=== PATIENT | male | born 1990 | race Asian ===

== ENCOUNTER 2018-07-14 19:13 | Emergency (ER) | payer SELFPAY ==
[~2018-07-14] VITALS: Ht 167.6 cm; Wt 59.1 kg
[2018-07-14] MEDS ORDERED: IBUPROFEN 600 MG TABLET PO ONE (20:15)
[2018-07-14] MEDS ORDERED: CYCLOBENZAPRINE HCL 10 MG TABLET PO ONE (20:15)
[2018-07-14 20:34] VITALS: BP 133/86
== END 2018-07-14 20:40 | disposition home or self-care (01) ==
LOC: EMS 19:14
DX: S13.4XXA Sprain of ligaments of cervical spine, initial encounter (principal); S39.012A Strain of muscle, fascia and tendon of lower back, initial encounter; J45.909 Unspecified asthma, uncomplicated; F17.210 Nicotine dependence, cigarettes, uncomplicated; V49.40XA Driver injured in collision with unspecified motor vehicles in traffic accident, initial encounter; Y93.89 Activity, other specified; Y92.89 Other specified places as the place of occurrence of the external cause; Y99.8 Other external cause status